=== PATIENT | male | born 1980 | race Caucasian/White ===

== ENCOUNTER 2018-08-28 12:01 | Day surgery (SDC) | payer OTHER ==
[2018-08-25 09:02] VITALS: BMI 25.9
[2018-08-28] MEDS ORDERED: PROPOFOL 20 ML ONE ×2 (16:27→16:44)
[2018-08-28] MEDS ORDERED: MIDAZOLAM HCL 2 MG/2 ML SINGLE DOSE VIAL ONE (16:27)
[2018-08-28] MEDS ORDERED: ONDANSETRON 4 MG/2 ML VIAL ONE ×2 (16:28)
[2018-08-28] MEDS ORDERED: DEXAMETHASONE SOD PHOSPHATE 4 MG/1 ML VIAL ONE (16:28)
[2018-08-28] MEDS ORDERED: ceFAZolin SODIUM 1 GM VIAL ONE (16:28)
[2018-08-28] MEDS ORDERED: fentaNYL CITRATE 250 MCG/5 ML VIAL ONE (16:43)
[2018-08-28] MEDS ORDERED: SUCCINYLCHOLINE CHLORIDE 200 MG/10 ML VIAL ONE (16:44)
[2018-08-28] MEDS ORDERED: ROCURONIUM BROMIDE 50 MG/5 ML VIAL ONE (16:44)
[2018-08-28] MEDS ORDERED: GLYCOPYRROLATE 0.2 MG/1 ML VIAL ONE ×2 (17:36)
[2018-08-28] MEDS ORDERED: NEOSTIGMINE METHYLSULFATE 0.5 MG/ML - 10 ML MDV ONE (17:36)
[2018-08-28] MEDS ORDERED: BUPIVACAINE HCL/PF 0.5% (5MG/ML) 10 ML VIAL ONE (17:50)
[2018-08-28] MEDS ORDERED: BACITRACIN 15 GM TUBE TOPICAL OINTMENT ONE (17:53)
[2018-08-28] MEDS ORDERED: BUPIVACAINE HCL/PF 0.5% (5MG/ML) 10 ML VIAL IJ ONE (18:05)
[2018-08-28] MEDS ORDERED: oxyCODONE HCL 5 MG TABLET PO PRN ×3 (18:25→18:34)
[2018-08-28] MEDS ORDERED: PROMETHAZINE HCL 25 MG/1 ML VIAL IVPUSH PRN (18:25)
[2018-08-28] MEDS ORDERED: ONDANSETRON 4 MG/2 ML VIAL IVPB PRN (18:34)
--- NOTE | 2018-08-28 18:36 | OP ---
Operative Note - Note: Operative Date: 08/28/18 Pre-Operative Diagnosis: right thumb FPL laceration Operation: right thumb tendon laceration repair Findings: laceration right thumb tendon Post-Operative Diagnosis: Same as Pre-op Surgeon: Jean Zhang [employer] Technician: Javier Link Anesthesia: General Operative Report Dictated: Yes
[2018-08-28] MEDS ORDERED: LACTATED RINGERS SOLUTION 1,000 ML IV SCH (18:45)
[2018-08-28 19:44] VITALS: BP 120/73; PULSE 67; TEMP 98
--- NOTE | 2018-08-29 08:16 | OP ---
DATE OF OPERATION: 08/28/2018 TITLE OF PROCEDURE: Right thumb flexor pollicis longus tendon repair. ATTENDING SURGEON: Jean Zhang MD HYPOID GEAR TESTER: Javier Link MD PREOPERATIVE DIAGNOSIS: Tendon laceration, flexor pollicis longus tendon to the right thumb. POSTOPERATIVE DIAGNOSIS: Tendon laceration, flexor pollicis longus tendon to the right thumb. The patient is marked in the holding area. It was discussed with the patient all risks, benefits, and alternatives to the procedure as well as possible necessary additional procedures depending on the findings. He understands and agrees to proceed. Patient brought to the operating room, placed in supine position. After induction of general anesthesia, hand was draped and prepped in standard surgical fashion. A tourniquet had been applied on the arm. The patient's thumb is marked. A timeout is called. Patient, procedure, site, and side are verified. At this point, the hand is elevated, Esmarch exsanguinated. Tourniquet pressure is 225 mmHg. Total tourniquet time for this case is 16 minutes. Under direct vision and loupe magnification, a Rowena-type incision is made incorporating the existing laceration scar on the patient's thumb. The radial and ulnar neurovascular bundles are visualized and protected. Dissection is carried down to the level of the flexor tendon sheath where both distal fragment of the tendon is identified with adequate length for suture purchase, and the proximal extent of the tendon is able to be delivered from the A2 laure which is able to be preserved without dividing. There is a fibrous connection between the 2 tendons. This is debrided. A primary repair is able to be performed using a 4-0 Prolene, 4-stranded, cruciate core suture, followed by a 6-0 nylon epitendinous suture. Neurovascular bundles are intact. The wound was copiously irrigated with normal saline. The skin flap is repaired with a series of interrupted 5-0 nylon sutures. The tourniquet is released. The fingertip is pink and viable. Dressings were applied with bacitracin and Xeroform, 2-inch Romelia, and a flexion 3-inch Ortho-Glass splint and an Donis wrap. Patient awoken from anesthesia without complication. It should be known that this is a repair distal to the A2 laure. Please note at the end of the procedure, a total of 4 mL of 0.5% Marcaine plain is injected as a digital block. Alban [id number]
== END 2018-08-28 19:30 | disposition home or self-care (01) ==
LOC: FASU 12:01
PROVIDERS: ATTEND Plastic Surgery
PROC: 0LQ70ZZ Repair Right Hand Tendon, Open Approach (ICD-10-PCS; principal; 2018-08-28 17:02)
DX: S66.021A Laceration of long flexor muscle, fascia and tendon of right thumb at wrist and hand level, initial encounter (principal); X58.XXXA Exposure to other specified factors, initial encounter; Y93.9 Activity, unspecified; Y92.9 Unspecified place or not applicable
CPT/HCPCS: 94760